=== PATIENT | female | born 1960 | race Two or more races ===

== ENCOUNTER 2023-04-06 14:39 | Inpatient (IN) | payer OTHER ==
[~2023-04-06] VITALS: Ht 165.1 cm; Wt 56.7 kg
== END 2023-04-14 11:03 | disposition home or self-care (01) | DRG 330 ==
LOC: SURG 04-12 07:00 → SURH 04-12 08:01 → O/R 04-12 08:01 → SURG 04-12 08:45 → SURH 04-12 13:39
PROVIDERS: ADMIT Colon & Rectal Surgery; ATTEND Colon & Rectal Surgery
PROC: 0DBP4ZZ Excision of Rectum, Percutaneous Endoscopic Approach (ICD-10-PCS; 2023-04-12)
PROC: 0DJD8ZZ Inspection of Lower Intestinal Tract, Via Natural or Artificial Opening Endoscopic (ICD-10-PCS; 2023-04-12)
PROC: 0DTN4ZZ Resection of Sigmoid Colon, Percutaneous Endoscopic Approach (ICD-10-PCS; principal; 2023-04-12 07:00)
DX: K57.32 Diverticulitis of large intestine without perforation or abscess without bleeding (principal); K92.1 Melena; N73.6 Female pelvic peritoneal adhesions (postinfective); N99.4 Postprocedural pelvic peritoneal adhesions; R59.0 Localized enlarged lymph nodes